=== PATIENT | male | born 1965 | race African-American/Black ===

== ENCOUNTER 2018-08-03 19:02 | Emergency (ER) | payer OTHER ==
[~2018-08-03] VITALS: Ht 177.8 cm; Wt 83.9 kg
[2018-08-03] MEDS ORDERED: CLEOCIN HCL150 MG PO (19:20)
[2018-08-03] MEDS ORDERED: NORCO 5-325 TA1 EACH PO (19:20)
[2018-08-03 19:53] VITALS: BP 173/122
== END 2018-08-03 19:54 | disposition home or self-care (01) ==
LOC: ER 19:02
DX: S02.5XXA Fracture of tooth (traumatic), initial encounter for closed fracture (principal); K02.9 Dental caries, unspecified; Z88.0 Allergy status to penicillin; X58.XXXA Exposure to other specified factors, initial encounter; Y93.89 Activity, other specified; Y92.89 Other specified places as the place of occurrence of the external cause; Y99.8 Other external cause status